=== PATIENT | female | born 1980 | race Caucasian/White ===

== ENCOUNTER 2017-10-17 10:53 | Outpatient (CLI) | payer BC ==
[~2017-10-17] VITALS: Ht 167.6 cm; Wt 141.8 kg
[2017-10-17 11:27] VITALS: BP 126/63
[2017-10-17 11:31] LABS: MICROSCOPIC INDICATED
[2017-10-17 11:41] LABS: PROTEIN/CREATININE RATIO,URINE < 147 (0-200); TOTAL PROTEIN,URINE RANDOM < 5 mg/dL (0-12)
[2017-10-17] MEDS ORDERED: PREN-3 PO (11:50)
[2017-10-17 11:55] LABS: BASOPHILS # (AUTO) 0.02 x10^3/uL (0-0.1); BASOPHILS % (AUTO) 0 % (0-1); EOSINOPHILS # (AUTO) 0.16 x10^3/uL (0-0.4); EOSINOPHILS % (AUTO) 1 % (1-7); LYMPHOCYTES # (AUTO) 1.89 x10^3/uL (1-3.4); LYMPHOCYTES % (AUTO) 16 % (22-44); MD NO; MEAN CORPUSCULAR HEMOGLOBIN 28.2 pg (27.0-34.8); MEAN CORPUSCULAR HGB CONC 33.5 g/dL (32.4-35.8); MEAN CORPUSCULAR VOLUME 84.1 fL (80-100); MEAN PLATELET VOLUME 7.4 fL (7.4-10.4); MONOCYTES # (AUTO) 0.57 x10^3/uL (0.2-0.8); MONOCYTES % (AUTO) 5 % (2-9); NEUTROPHILS # (AUTO) 8.97 x10^3/uL (1.8-6.8); NEUTROPHILS % (AUTO) 77 % (42-75); PLATELET COUNT 278 x10^3/uL (130-400); RED BLOOD COUNT 4.35 x10^6/uL (3.82-5.3); RED CELL DISTRIBUTION WIDTH 14.7 % (9.6-15.2)
[2017-10-17 12:05] LABS: ALBUMIN 2.6 g/dL (3.4-5.0); ANION GAP 11 mmol/L (5-15); CALCIUM 8.8 mg/dL (8.5-10.1); CHLORIDE 107 mmol/L (98-107)
[2017-10-17 12:09] LABS: ALANINE AMINOTRANSFERASE 17 U/L (12-78); ALKALINE PHOSPHATASE 119 U/L (45-117); BILIRUBIN, DIRECT < 0.1 mg/dL (0.1-0.2); BILIRUBIN,TOTAL 0.3 mg/dL (0.2-1.0); CREATININE 0.35 mg/dL (0.55-1.02); TOTAL PROTEIN 6.6 g/dL (6.4-8.2)
== END 2017-10-17 12:48 ==
LOC: LDOP 10:53
PROVIDERS: ATTEND Obstetrics & Gynecology
DX: O16.3 Unspecified maternal hypertension, third trimester (principal); Z3A.32 32 weeks gestation of pregnancy
CPT/HCPCS: 36415; 59025; 80053; 81001; 82248; 82570; 84156; 84550; 85025; 99211; G0463

== ENCOUNTER 2017-11-05 17:14 | Outpatient (CLI) | payer BC ==
[~2017-11-05] VITALS: Ht 167.6 cm; Wt 144.5 kg
[~2017-11-05 17:14] MED LIST: PREN-3 PO
[2017-11-05 17:32] VITALS: BP_SYST 147
[2017-11-05] MEDS ORDERED: BETAMETHASONE 6 MG/ML, 5ML IM SCH (18:00)
[2017-11-05 18:10] LABS: BASOPHILS # (AUTO) 0.03 x10^3/uL (0-0.1); BASOPHILS % (AUTO) 0 % (0-1); EOSINOPHILS # (AUTO) 0.15 x10^3/uL (0-0.4); EOSINOPHILS % (AUTO) 2 % (1-7); LYMPHOCYTES # (AUTO) 2.13 x10^3/uL (1-3.4); LYMPHOCYTES % (AUTO) 22 % (22-44); MD NO; MEAN CORPUSCULAR HEMOGLOBIN 28.3 pg (27.0-34.8); MEAN CORPUSCULAR HGB CONC 33.5 g/dL (32.4-35.8); MEAN CORPUSCULAR VOLUME 84.3 fL (80-100); MEAN PLATELET VOLUME 7.3 fL (7.4-10.4); MONOCYTES # (AUTO) 0.59 x10^3/uL (0.2-0.8); MONOCYTES % (AUTO) 6 % (2-9); NEUTROPHILS # (AUTO) 6.86 x10^3/uL (1.8-6.8); NEUTROPHILS % (AUTO) 70 % (42-75); PLATELET COUNT 247 x10^3/uL (130-400); RED BLOOD COUNT 4.34 x10^6/uL (3.82-5.3); RED CELL DISTRIBUTION WIDTH 15.3 % (9.6-15.2)
[2017-11-05 18:13] LABS: MICROSCOPIC INDICATED
[2017-11-05 18:23] LABS: ALANINE AMINOTRANSFERASE 15 U/L (12-78); ALBUMIN 2.7 g/dL (3.4-5.0); ANION GAP 12 mmol/L (5-15); BILIRUBIN, DIRECT 0.1 mg/dL (0.1-0.2); CALCIUM 8.6 mg/dL (8.5-10.1); CHLORIDE 108 mmol/L (98-107)
[2017-11-05 18:25] LABS: ALKALINE PHOSPHATASE 135 U/L (45-117); BILIRUBIN,TOTAL 0.3 mg/dL (0.2-1.0); CREATININE 0.51 mg/dL (0.55-1.02); TOTAL PROTEIN 6.6 g/dL (6.4-8.2)
[2017-11-05] MEDS ORDERED: BETAMETHASONE 6 MG/ML, 5ML IM ONE (18:28)
[2017-11-05 19:25] LABS: CREATININE,URINE RANDOM 67.4 mg/dL
== END 2017-11-05 20:06 | disposition home or self-care (01) ==
LOC: LDOP 17:14
PROVIDERS: ATTEND Obstetrics & Gynecology
DX: O13.3 Gestational [pregnancy-induced] hypertension without significant proteinuria, third trimester (principal); Z3A.35 35 weeks gestation of pregnancy
CPT/HCPCS: 36415; 59025; 80053; 81001; 82248; 82570; 84156; 84550; 85025; 96372; 99211; J0702; G0463

== ENCOUNTER 2017-11-06 18:30 | Outpatient (CLI) | payer BC ==
[2017-11-06] MEDS ORDERED: BETAMETHASONE 6 MG/ML, 5ML IM ONE (19:30)
[2017-11-06] MEDS ORDERED: PLEASE ENTER HEIGHT AND WEIGHT MC SCH (19:30)
== END 2017-11-06 19:52 | disposition home or self-care (01) ==
LOC: LDOP 18:30
PROVIDERS: ATTEND Obstetrics & Gynecology
DX: Z34.03 Encounter for supervision of normal first pregnancy, third trimester (principal)
CPT/HCPCS: 59025; 96372; 99211; J0702; G0463

== ENCOUNTER 2017-11-21 12:36 | Outpatient (CLI) | payer BC ==
[~2017-11-21] VITALS: Ht 167.6 cm; Wt 141.8 kg
[2017-11-21 12:46] VITALS: BP 113/56
[2017-11-21] MEDS ORDERED: LABE100T3 PO (13:24)
[2017-11-21] MEDS ORDERED: CALC625T13 PO (13:24)
[2017-11-21 13:32] LABS: MICROSCOPIC INDICATED
[2017-11-21 13:38] LABS: ALANINE AMINOTRANSFERASE 20 U/L (12-78); ALBUMIN 2.3 g/dL (3.4-5.0); ANION GAP 10 mmol/L (5-15); BILIRUBIN, DIRECT 0.1 mg/dL (0.1-0.2); CALCIUM 8.4 mg/dL (8.5-10.1); CHLORIDE 106 mmol/L (98-107); CREATININE 0.55 mg/dL (0.55-1.02)
[2017-11-21 13:40] LABS: ALKALINE PHOSPHATASE 154 U/L (45-117); BILIRUBIN,TOTAL 0.3 mg/dL (0.2-1.0); TOTAL PROTEIN 6.2 g/dL (6.4-8.2)
[2017-11-21 13:41] LABS: BASOPHILS # (AUTO) 0.02 x10^3/uL (0-0.1); BASOPHILS % (AUTO) 0 % (0-1); EOSINOPHILS # (AUTO) 0.14 x10^3/uL (0-0.4); EOSINOPHILS % (AUTO) 2 % (1-7); LYMPHOCYTES % (AUTO) 17 % (22-44); MD NO; MEAN CORPUSCULAR HGB CONC 33.4 g/dL (32.4-35.8); MEAN CORPUSCULAR VOLUME 83.6 fL (80-100); MEAN PLATELET VOLUME 7.9 fL (7.4-10.4); MONOCYTES # (AUTO) 0.43 x10^3/uL (0.2-0.8); MONOCYTES % (AUTO) 5 % (2-9); NEUTROPHILS # (AUTO) 7.32 x10^3/uL (1.8-6.8); NEUTROPHILS % (AUTO) 77 % (42-75); PLATELET COUNT 254 x10^3/uL (130-400); RED BLOOD COUNT 4.21 x10^6/uL (3.82-5.3); RED CELL DISTRIBUTION WIDTH 15.6 % (9.6-15.2)
[2017-11-21 13:46] LABS: RAPID INFLUENZA A Negative (Negative); RAPID INFLUENZA B Negative (Negative)
== END 2017-11-21 17:21 | disposition home or self-care (01) ==
LOC: LDOP 12:36
PROVIDERS: ATTEND Obstetrics & Gynecology
DX: O13.3 Gestational [pregnancy-induced] hypertension without significant proteinuria, third trimester (principal); Z3A.37 37 weeks gestation of pregnancy
CPT/HCPCS: 36415; 59025; 76819; 80053; 81001; 82248; 82570; 84156; 84550; 85025; 87400; 99211; G0463

== ENCOUNTER 2017-11-27 05:00 | Inpatient (IN) | payer BC ==
[~2017-11-27] VITALS: Ht 162.6 cm; Wt 143.1 kg
[~2017-11-27 05:00] MED LIST changes: +CALC625T13 PO; +LABE100T3 PO
[2017-11-27] MEDS ORDERED: OXYTOCIN 30U/ 0.9% NaCL 500ML 500 ML IV ONE (05:08)
[2017-11-27] MEDS ORDERED: OXYTOCIN 30U/ 0.9% NaCL 500ML 500 ML IV PRN (05:08)
[2017-11-27] MEDS ORDERED: FENTANYL PF 100 MCG/2ML IVPush PRN (05:30)
[2017-11-27] MEDS ORDERED: ONDANSETRON 2MG/ML, 2ML IVPush PRN (05:30)
[2017-11-27] MEDS ORDERED: PLEASE ENTER HEIGHT AND WEIGHT MC SCH (05:30)
[2017-11-27] MEDS ORDERED: ALUMINUM/MAG/SIMETHICONE 30 ML UDC PO PRN (05:30)
[2017-11-27] MEDS ORDERED: SODIUM CITRATE/CITRIC ACID 30 ML UDC PO PRN (05:30)
[2017-11-27] MEDS ORDERED: FENTANYL PF 100 MCG/2ML IV PRN (05:30)
[2017-11-27] MEDS ORDERED: METOCLOPRAMIDE 5 MG/ML, 2ML IVPush PRN (05:30)
[2017-11-27] MEDS ORDERED: TERBUTALINE 1 MG/ML, 1ML IVPush PRN (05:30)
[2017-11-27] MEDS ORDERED: OXYTOCIN 30U/ 0.9% NaCL 500ML 500 ML ONE (05:31)
[2017-11-27] MEDS ORDERED: MISOPROSTOL 25 MCG TABLET ONE ×2 (05:31→05:40)
[2017-11-27 05:50] VITALS: BP 141/86
[2017-11-27] MEDS ORDERED: MISOPROSTOL 25 MCG TABLET VG PRN (06:00)
[2017-11-27] MEDS ORDERED: D5%-LACTATED RINGERS 1,000 ML IV SCH (06:06)
[2017-11-27 06:38] LABS: ALBUMIN 2.2 g/dL (3.4-5.0); ANION GAP 11 mmol/L (5-15); CALCIUM 8.5 mg/dL (8.5-10.1); CHLORIDE 110 mmol/L (98-107)
[2017-11-27 06:42] LABS: BASOPHILS % (AUTO) 0 % (0-1); EOSINOPHILS # (AUTO) 0.11 x10^3/uL (0-0.4); EOSINOPHILS % (AUTO) 1 % (1-7); LYMPHOCYTES # (AUTO) 2.23 x10^3/uL (1-3.4); LYMPHOCYTES % (AUTO) 24 % (22-44); MD NO; MEAN CORPUSCULAR HEMOGLOBIN 28.1 pg (27.0-34.8); MEAN CORPUSCULAR HGB CONC 33.6 g/dL (32.4-35.8); MEAN CORPUSCULAR VOLUME 83.5 fL (80-100); MEAN PLATELET VOLUME 7.9 fL (7.4-10.4); MONOCYTES # (AUTO) 0.49 x10^3/uL (0.2-0.8); MONOCYTES % (AUTO) 5 % (2-9); NEUTROPHILS # (AUTO) 6.34 x10^3/uL (1.8-6.8); NEUTROPHILS % (AUTO) 69 % (42-75); PLATELET COUNT 243 x10^3/uL (130-400); RED BLOOD COUNT 4.29 x10^6/uL (3.82-5.3); RED CELL DISTRIBUTION WIDTH 15.2 % (9.6-15.2)
[2017-11-27 06:51] LABS: ALANINE AMINOTRANSFERASE 22 U/L (12-78); ALKALINE PHOSPHATASE 153 U/L (45-117); BILIRUBIN,TOTAL 0.8 mg/dL (0.2-1.0); CREATININE 0.51 mg/dL (0.55-1.02); TOTAL PROTEIN 6.1 g/dL (6.4-8.2)
[2017-11-27] MEDS ORDERED: GUAIFENESIN/DM 200-20MG, 10ML UDC PO PRN (07:00)
[2017-11-27] MEDS: LACTATED RINGERS 1,000 ML IV SCH ×3 (12:39→20:54)
[2017-11-27] MEDS ORDERED: BUPIVACAINE 0.25% ONE (16:06)
[2017-11-27] MEDS ORDERED: FENTANYL/BUPIV./NS/PF 250 ML EPIDCONT ONE (16:07)
[2017-11-27] MEDS ORDERED: FENTANYL/BUPIV./NS/PF 250 ML EPIDCONT SCH (16:48)
[2017-11-27] MEDS ORDERED: LACTATED RINGERS 1,000 ML IV SCH ×2 (16:48→20:54)
[2017-11-27] MEDS ORDERED: LACTATED RINGERS 1,000 ML IVBOLUS PRN (17:00)
[2017-11-27] MEDS: LABETALOL 100 MG TABLET PO SCH ×2 (18:00→23:13)
[2017-11-27] MEDS ORDERED: METOCLOPRAMIDE 5 MG/ML, 2ML ONE (20:32)
[2017-11-27] MEDS ORDERED: SODIUM CITRATE/CITRIC ACID 30 ML UDC ONE (20:32)
[2017-11-27] MEDS ORDERED: OXYTOCIN 10 UNITS/ML, 1ML ONE (20:43)
[2017-11-27] MEDS ORDERED: CEFAZOLIN 1,000 MG ONE ×2 (20:43→20:55)
[2017-11-27] MEDS ORDERED: SODIUM CHLORIDE 0.9% PF 10ML ONE ×3 (20:43→20:55)
[2017-11-27] MEDS ORDERED: HYDROmorphone 2 MG/ML, 1ML ONE (20:43)
[2017-11-27] MEDS ORDERED: FENTANYL PF 100 MCG/2ML ONE ×2 (20:43→22:31)
[2017-11-27] MEDS ORDERED: ONDANSETRON 2MG/ML, 2ML ONE (20:43)
[2017-11-27] MEDS ORDERED: LIDOCAINE-MPF 2% ,5ML ONE ×2 (20:46)
[2017-11-27] MEDS: OXYTOCIN 30U/ 0.9% NaCL 500ML 500 ML IV SCH (20:54)
[2017-11-27] MEDS ORDERED: NEWBORN KIT ONE (20:59)
[2017-11-27] MEDS ORDERED: MISOPROSTOL 200 MCG TABLET PR PRN (21:00)
[2017-11-27] MEDS ORDERED: KETOROLAC 30 MG/1 ML IV SCH (21:00)
[2017-11-27] MEDS ORDERED: ACETAMINOPHEN 325 MG TABLET PO PRN (21:00)
[2017-11-27] MEDS ORDERED: morphine SULFATE 10 MG/ML, 1ML IVPush PRN (21:00)
[2017-11-27] MEDS ORDERED: CARBOPROST TROMETHAMINE 250 MCG/ML, 1ML IM PRN (21:00)
[2017-11-27] MEDS ORDERED: MEPERIDINE/PF 100 MG/ML IVPush PRN (21:00)
[2017-11-27] MEDS ORDERED: BISACODYL 10 MG SUPP PR PRN (21:00)
[2017-11-27] MEDS ORDERED: METOCLOPRAMIDE 5 MG/ML, 2ML IV PRN (21:00)
[2017-11-27] MEDS ORDERED: ONDANSETRON 2MG/ML, 2ML IV PRN (21:00)
[2017-11-27] MEDS ORDERED: OXYcodone 5 MG/5 ML ORAL.SOL UDC ONE (23:10)
[2017-11-27] MEDS ORDERED: LABETALOL 100 MG TABLET ONE (23:10)
[2017-11-27] MEDS ORDERED: OXYcodone 5 MG/5 ML ORAL.SOL UDC PO ONE (23:30)
[2017-11-27] MEDS ORDERED: OXYcodone 5 MG/5 ML ORAL.SOL UDC PO PRN (23:30)
[2017-11-28] VITALS (9 sets, daily range): BP systolic 116–151; BP diastolic 65–93
[2017-11-28] MEDS: OXYcodone/APAP 5/325MG TABLET PO PRN ×5 (04:12→20:00)
[2017-11-28] MEDS: LACTATED RINGERS 1,000 ML IV SCH (04:54)
[2017-11-28] MEDS: LABETALOL 100 MG TABLET PO SCH ×2 (05:38→17:28)
[2017-11-28 06:39] LABS: BASOPHILS # (AUTO) 0.02 x10^3/uL (0-0.1); BASOPHILS % (AUTO) 0 % (0-1); EOSINOPHILS # (AUTO) 0.04 x10^3/uL (0-0.4); EOSINOPHILS % (AUTO) 0 % (1-7); LYMPHOCYTES # (AUTO) 1.99 x10^3/uL (1-3.4); LYMPHOCYTES % (AUTO) 17 % (22-44); MD NO; MEAN CORPUSCULAR HEMOGLOBIN 27.9 pg (27.0-34.8); MEAN CORPUSCULAR HGB CONC 33.4 g/dL (32.4-35.8); MEAN CORPUSCULAR VOLUME 83.5 fL (80-100); MONOCYTES # (AUTO) 0.52 x10^3/uL (0.2-0.8); MONOCYTES % (AUTO) 4 % (2-9); NEUTROPHILS # (AUTO) 9.39 x10^3/uL (1.8-6.8); NEUTROPHILS % (AUTO) 79 % (42-75); PLATELET COUNT 227 x10^3/uL (130-400); RED BLOOD COUNT 4.12 x10^6/uL (3.82-5.3); RED CELL DISTRIBUTION WIDTH 15.6 % (9.6-15.2)
[2017-11-28] MEDS: OXYTOCIN 30U/ 0.9% NaCL 500ML 500 ML IV SCH (06:54)
[2017-11-28] MEDS: PRENATAL VIT/IRON/FA 1 EACH TABLET PO SCH (08:20)
[2017-11-28] MEDS: OXYcodone IR 5MG TABLET PO PRN ×2 (08:20→15:43)
[2017-11-28] MEDS: DOCUSATE 100 MG CAPSULE PO PRN ×2 (08:20→20:00)
[2017-11-28] MEDS ORDERED: MEPERIDINE/PF 50 MG/ML ONE (16:34)
[2017-11-28] MEDS ORDERED: MEPERIDINE/PF 50 MG/ML IM PRN (21:00)
[2017-11-28] MEDS: ENOXAPARIN 40 MG/0.4 ML SQ SCH (21:12)
[2017-11-29] VITALS (7 sets, daily range): BP systolic 113–149; BP diastolic 69–85
[2017-11-29] MEDS ORDERED: OXYC-302 PO (02:44)
[2017-11-29] MEDS ORDERED: IBUP-1222 PO (02:45)
[2017-11-29] MEDS ORDERED: DOCU-131 PO (02:46)
[2017-11-29] MEDS ORDERED: LABE100T3 PO (02:50)
[2017-11-29] MEDS ORDERED: ENOX40SY4 SQ ×2 (02:50→13:20)
[2017-11-29] MEDS: OXYcodone/APAP 5/325MG TABLET PO PRN ×4 (03:16→20:17)
[2017-11-29] MEDS: LABETALOL 100 MG TABLET PO SCH ×2 (05:42→17:27)
[2017-11-29] MEDS: PRENATAL VIT/IRON/FA 1 EACH TABLET PO SCH (09:01)
[2017-11-29] MEDS: DOCUSATE 100 MG CAPSULE PO PRN (09:01)
[2017-11-29] MEDS: ENOXAPARIN 40 MG/0.4 ML SQ SCH (20:19)
== END 2017-11-29 20:50 | disposition home or self-care (01) | DRG 766 ==
LOC: LDIP 05:00 → 2NW 23:58
PROVIDERS: ADMIT Obstetrics & Gynecology; ATTEND Obstetrics & Gynecology
PROC: 10D00Z1 Extraction of Products of Conception, Low, Open Approach (ICD-10-PCS; principal; 2017-11-27)
DX: O13.4 Gestational [pregnancy-induced] hypertension without significant proteinuria, complicating childbirth (principal); E66.01 Morbid (severe) obesity due to excess calories; O99.214 Obesity complicating childbirth; O76 Abnormality in fetal heart rate and rhythm complicating labor and delivery; Z3A.38 38 weeks gestation of pregnancy; Z37.0 Single live birth
CPT/HCPCS: 36415; 80053; 82803; 85025; 86850; 86900; J0690; J1170; J1650; J2175; J2405; J3010; J3490; J2590; J2765; J7120